=== PATIENT | male | born 1965 | race Two or more races ===

== ENCOUNTER 2024-06-17 08:25 | Emergency (ER) | payer BC ==
[~2024-06-17] VITALS: Ht 185.4 cm; Wt 108.9 kg
[2024-06-17] MEDS ORDERED: CIPROFLOXACIN HCL 500 MG TABLET PO ONE (09:15)
[2024-06-17] MEDS ORDERED: PHENAZOPYRIDINE HCL 100 MG TABLET PO ONE (09:15)
[2024-06-17] MEDS ORDERED: TAMSULOSIN HCL 0.4 MG CAP PO ONE (09:15)
[2024-06-17 09:27] LABS: HEMATOCRIT 43.4 % (39.0-48.0); HEMOGLOBIN 14.6 g/dL (13-16.00); MEAN CORPUSCULAR HEMOGLOBIN 30.2 pg (27.00-32.0); MEAN CORPUSCULAR HGB CONC 33.6 g/dl (32.0-36.0); RED BLOOD COUNT 4.82 M/uL (4.00-6.00)
[2024-06-17 09:32] LABS: PLATELET COUNT 119 K/uL (150-450)
[2024-06-17 10:31] LABS: URINE APPEARANCE Cloudy; URINE BILIRRUBIN Negative (NEGATIVE); URINE BLOOD Small; URINE COLOR Dark Yellow; URINE GLUCOSE Negative (NEGATIVE); URINE KETONE Trace (NEGATIVE); URINE LEUKOCYTE Large; URINE NITRATE Negative; URINE PROTEIN 30 (NEGATIVE)
[2024-06-17 10:36] LABS: URINE RBC 52.4 uL (0.0-20.8); URINE WBC 2104.9 uL (0.0-23.2)
[2024-06-17 10:43] LABS: URINE CAST 0.73 uL (0.0-1.40); URINE EPITHELIAL CELLS 1.2 uL (0.0-38.8)
[2024-06-17] MEDS ORDERED: TAMS0.4C PO (11:04)
[2024-06-17] MEDS ORDERED: BACTRIM DS TAB1 EACH PO (11:04)
[2024-06-17] MEDS ORDERED: PYRIDIUM DS200 MG PO (11:04)
[2024-06-17] MEDS ORDERED: PEPCID AC20 MG PO (11:04)
[2024-06-17] MEDS ORDERED: 0.9 % SODIUM CHLORIDE 1,000 ML IV ONE (11:15)
== END 2024-06-17 13:12 | disposition home or self-care (01) ==
LOC: ER 08:26
PROVIDERS: General Practice
DX: R30.0 Dysuria (principal); Z88.0 Allergy status to penicillin; Z91.040 Latex allergy status